=== PATIENT | female | born 1950 | race Hispanic/Latino ===

== ENCOUNTER 2022-02-05 02:38 | Observation (INO) | payer OTHER ==
[~2022-02-05] VITALS: Ht 152.4 cm; Wt 61.2 kg
[2022-02-05 03:19] LABS: BASOPHILS % (AUTO) 0.4 % (0.0-5.0); EOSINOPHILS % (AUTO) 0.7 % (0.0-8.0); HEMATOCRIT 40.9 % (36-48); LYMPHOCYTES % (AUTO) 11.6 % (21.0-51.0); MEAN CORPUSCULAR VOLUME 85.2 fL (79-99); MONOCYTES % (AUTO) 4.6 % (3.0-13.0); NEUTROPHILS % (AUTO) 82.2 % (40.0-77.0); PLATELET COUNT (AUTO) 279 K/uL (130-400); RED CELL DISTRIBUTION WIDTH 13.4 % (11.0-15.5); WHITE BLOOD COUNT (AUTO) 18.9 K/uL (4.8-10.8)
[2022-02-05 03:22] LABS: CREATININE 1.2 mg/dL (0.5-1.5); POTASSIUM 3.3 mmol/L (3.5-5.1)
[2022-02-05 03:27] LABS: ALBUMIN 3.8 g/dL (3.5-5.0); TOTAL PROTEIN, SERUM 7.8 g/dL (6.0-8.3)
[2022-02-05 05:12] LABS: APPEARANCE,URINE CLEAR (CLEAR); BILIRUBIN,URINE NEGATIVE (NEGATIVE); COLOR,URINE COLORLESS (YELLOW); GLUCOSE, URINE (UA) 500 mg/dL (NEGATIVE); KETONES,URINE NEGATIVE (NEGATIVE); LEUKOCYTE ESTERASE ,URINE 75 Leu/uL (NEGATIVE); NITRATE,URINE NEGATIVE (NEGATIVE); OCCULT BLOOD,URINE NEGATIVE (NEGATIVE); PROTEIN,URINE 20 mg/dL (NEGATIVE); UROBILINOGEN,URINE 0.2 mg/dL (0.2-1.0)
[2022-02-05 05:18] LABS: BACTERIA,URINE RARE /HPF (None Seen); MUCUS,URINE RARE LPF (None Seen); RBC,URINE 0-1 /HPF (0-1); SQUAMOUS EPITHELIAL CELL,UR RARE /HPF (0-2)
[2022-02-05] MEDS ORDERED: ONDANSETRON 4MG INJ IVP ONE (06:00)
[2022-02-05] MEDS ORDERED: MORPHINE 4 MG SYG IVP ONE (06:00)
[2022-02-05] MEDS ORDERED: MORPHINE 2 MG SYG IVP PRN (06:30)
[2022-02-05] MEDS ORDERED: ONDANSETRON 4MG INJ IVP PRN (06:30)
[2022-02-05] MEDS ORDERED: ACETAMINOPHEN 325 MG TAB PO PRN (06:30)
[2022-02-05] MEDS ORDERED: HYDRALAZINE 20MG/ML VIAL IV PRN (06:30)
[2022-02-05] MEDS: ARTIFICAL TEARS SOL 15 ML OU SCH (06:30)
[2022-02-05] MEDS ORDERED: TEMAZEPAM 15 MG CAPSULE PO PRN (06:30)
[2022-02-05] MEDS ORDERED: ACETAMINOPHEN 650 MG SUPPOSITORY RC PRN (06:30)
[2022-02-05] MEDS ORDERED: HYDROCODONE/ACETAMINOPHEN 5/325 MG TAB PO PRN (06:30)
[2022-02-05] MEDS ORDERED: CEFTRIAXONE 1G VIAL IVP SCH (06:30)
[2022-02-05] MEDS: LACTATED RINGERS 1000ML 1,000 ML IV SCH ×2 (06:40→14:43)
[2022-02-05 07:07] LABS: CHOLESTEROL 165 mg/dL (<200); HDL CHOLESTEROL 56 mg/dL (35-85); LDL DIRECT 94 mg/dL (0-99); TRIGLYCERIDES 166 mg/dL (30-200)
[2022-02-05] MEDS ORDERED: METF-446 PO (07:43)
[2022-02-05] MEDS ORDERED: LOSA1TAB54 PO (07:43)
[2022-02-05] MEDS ORDERED: CARV25TA PO (07:43)
[2022-02-05] MEDS ORDERED: LINA290C PO (07:43)
[2022-02-05] MEDS ORDERED: DEXL60CA3 PO (07:43)
[2022-02-05] MEDS ORDERED: PRAV40TA3 PO (07:43)
[2022-02-05] MEDS ORDERED: GLIM2TAB30 PO (07:43)
[2022-02-05] MEDS ORDERED: EZET10TA48 PO (07:43)
[2022-02-05] MEDS ORDERED: CEFTRIAXONE 2GM VIAL ONE (08:36)
[2022-02-05] MEDS: CEFTRIAXONE 1G VIAL IVP SCH (08:50)
[2022-02-05] MEDS: INSULIN HUMULIN R 100 UNIT/ML 3ML SQ SCH ×2 (12:03→17:05)
[2022-02-05 14:53] VITALS: BP 132/57
[2022-02-05 20:12] VITALS: BP 134/70
[2022-02-05] MEDS ORDERED: SIMVASTATIN 20 MG TABLET PO SCH (21:00)
[2022-02-05] MEDS ORDERED: CARVEDILOL 25 MG TABLET PO SCH (21:00)
[2022-02-05] MEDS ORDERED: KETOROLAC 15MG/ML VIAL (15MG/ML) IV PRN (22:30)
[2022-02-05 23:52] VITALS: BP 99/50
[2022-02-06] MEDS: ARTIFICAL TEARS SOL 15 ML OU SCH ×3 (00:30→12:30)
[2022-02-06] MEDS: LACTATED RINGERS 1000ML 1,000 ML IV SCH ×2 (01:04→06:30)
[2022-02-06 04:21] VITALS: BP 105/61
[2022-02-06] MEDS: INSULIN HUMULIN R 100 UNIT/ML 3ML SQ SCH ×3 (06:00→12:13)
[2022-02-06 06:14] LABS: HEMATOCRIT 35.3 % (36-48); MEAN CORPUSCULAR HEMOGLOBIN 28.7 pg (27.0-33.0); MEAN CORPUSCULAR HGB CONC 32.9 g/dL (32.0-36.0); MEAN CORPUSCULAR VOLUME 87.4 fL (79-99); RED BLOOD CELL COUNT(AUTO) 4.04 MIL/uL (4.00-5.50); RED CELL DISTRIBUTION WIDTH 13.6 % (11.0-15.5); WHITE BLOOD COUNT (AUTO) 9.7 K/uL (4.8-10.8)
[2022-02-06 06:19] LABS: HEMOGLOBIN A1C 10.1 % (4.0-6.0)
[2022-02-06 06:29] LABS: CREATININE 1.2 mg/dL (0.5-1.5); MAGNESIUM 1.5 mg/dL (1.80-2.40); POTASSIUM 3.5 mmol/L (3.5-5.1); THYROID STIMULATING HORMONE 0.7 uIU/mL (0.36-3.74)
[2022-02-06 07:05] VITALS: BP 131/59
[2022-02-06] MEDS ORDERED: GLUCAGON 1MG KIT 1 MG ML IM PRN (08:30)
[2022-02-06] MEDS ORDERED: POTASSIUM CHLORIDE 10% ELIXIR 20 MEQ/15 ML UDCUP PO PRN (08:30)
[2022-02-06] MEDS ORDERED: KCL 20 MEQ ERTAB PO PRN (08:30)
[2022-02-06] MEDS ORDERED: DEXTROSE 50%-WATER 50 ML DISP.SYRIN IV PRN (08:30)
[2022-02-06] MEDS ORDERED: LIDOCAINE HCL-MPF 1% 2ML VIAL IV PRN ×2 (08:30)
[2022-02-06] MEDS ORDERED: MAGNESIUM 2GM PREMIX 50ML 50 ML IV PRN ×2 (08:30)
[2022-02-06] MEDS ORDERED: POTASSIUM CHLORIDE 20MEQ/100ML 100 ML IV PRN ×2 (08:30)
[2022-02-06] MEDS ORDERED: EZETIMIBE 10 MG TAB PO SCH (09:00)
[2022-02-06] MEDS ORDERED: CARVEDILOL 25 MG TABLET PO SCH (09:00)
[2022-02-06] MEDS ORDERED: DEXLANSOPRAZOLE 60 MG PO SCH (09:00)
[2022-02-06] MEDS ORDERED: LINACLOTIDE 290 MCG PO SCH (09:00)
[2022-02-06] MEDS ORDERED: LOSARTAN/HYDROCHLOROTHIAZIDE 50-12.5MG TABLET PO SCH ×2 (09:00)
[2022-02-06] MEDS: CEFTRIAXONE 1G VIAL IVP SCH (09:09)
[2022-02-06 12:11] VITALS: BP 140/59
[2022-02-06] MEDS ORDERED: SULF1TAB42 PO (14:48)
== END 2022-02-06 16:00 | disposition home or self-care (01) ==
LOC: EDH 02:38 → EDHIP 06:24 → 3CH 14:09
PROVIDERS: ADMIT Internal Medicine Critical Care Medicine; ATTEND Internal Medicine Critical Care Medicine
DX: A41.9 Sepsis, unspecified organism (principal); Z20.822 Contact with and (suspected) exposure to COVID-19; N12 Tubulo-interstitial nephritis, not specified as acute or chronic; N39.0 Urinary tract infection, site not specified; I10 Essential (primary) hypertension; K85.00 Idiopathic acute pancreatitis without necrosis or infection; K85.90 Acute pancreatitis without necrosis or infection, unspecified; E11.9 Type 2 diabetes mellitus without complications; E78.00 Pure hypercholesterolemia, unspecified; E78.5 Hyperlipidemia, unspecified; K76.0 Fatty (change of) liver, not elsewhere classified; N13.6 Pyonephrosis; Z79.899 Other long term (current) drug therapy; Z98.890 Other specified postprocedural states
CPT/HCPCS: 96376 ×2; 96375; 99285; 84484; 80061; 80053; 83690 ×2; 85025; 87088; 82948 ×6; 81001; 36415 ×2; 87635; 74176; 76705; 93005; 96365; 83036; 84443; 83735; 84100; 80048; 85027; J1815; G0378 ×34; C9803; J7120 ×3; J0696 ×2; J2405; J2270; J3475